=== PATIENT | female | born 1975 ===

== ENCOUNTER 2017-08-13 08:21 | Outpatient (CLI) | payer OTHER ==
[~2017-08-13] VITALS: Ht 149.9 cm; Wt 46.3 kg
[2017-08-13] MEDS ORDERED: FLONASE16 GM NASAL (09:48)
[2017-08-13] MEDS ORDERED: CEFUROXIME500 MG PO (09:48)
[2017-08-13] MEDS ORDERED: ZYRTEC10 MG PO (09:48)
== END 2017-08-13 08:40 | disposition home or self-care (01) ==
LOC: OFIC 805 08:21
DX: J32.8 Other chronic sinusitis (principal); J31.0 Chronic rhinitis; R43.8 Other disturbances of smell and taste; R05 Cough

== ENCOUNTER 2017-09-03 08:12 | Outpatient (CLI) | payer OTHER ==
[~2017-09-03] VITALS: Ht 121.9 cm; Wt 46.3 kg
[~2017-09-03 08:12] MED LIST: CEFUROXIME500 MG PO; FLONASE16 GM NASAL; ZYRTEC10 MG PO
[2017-09-03] MEDS ORDERED: ZYRTEC10 MG PO (09:03)
[2017-09-03] MEDS ORDERED: FLONASE16 GM NASAL (09:03)
== END 2017-09-03 08:30 | disposition home or self-care (01) ==
LOC: OFIC 805 08:12
DX: J31.0 Chronic rhinitis (principal)

== ENCOUNTER 2018-03-11 08:22 | Outpatient (CLI) | payer OTHER ==
[~2018-03-11] VITALS: Ht 121.9 cm; Wt 46.3 kg
[2018-03-11] MEDS ORDERED: FLONASE16 GM NASAL (10:34)
[2018-03-11] MEDS ORDERED: CLARITIN10 MG PO (10:34)
[2018-03-11] MEDS ORDERED: CEFUROXIME500 MG PO (10:34)
== END 2018-03-11 08:40 | disposition home or self-care (01) ==
LOC: OFIC 805 08:22
DX: J31.0 Chronic rhinitis (principal); J32.8 Other chronic sinusitis; J34.2 Deviated nasal septum; R43.8 Other disturbances of smell and taste

== ENCOUNTER → 2019-01-13 | Outpatient (CLI) | payer OTHER ==
[~2019-01-13] VITALS: Ht 121.9 cm; Wt 47.6 kg
[~2019-01-13] MED LIST changes: +CLARITIN10 MG PO; +DERMOTIC20 ML OTIC
== END | disposition home or self-care (01) ==
LOC: OFIC 805 09:48
DX: J31.0 Chronic rhinitis (principal); J34.2 Deviated nasal septum; R43.8 Other disturbances of smell and taste; L29.8 Other pruritus; L30.8 Other specified dermatitis